=== PATIENT | female | born 1960 | race Caucasian/White ===

== ENCOUNTER → 2017-12-21 | Outpatient (CLI) | payer BC | LOC: GMAJ 12:19 | PROVIDERS: ATTEND Family Medicine | DX: Z00.01 Encounter for general adult medical examination with abnormal findings (principal) ==

== ENCOUNTER → 2018-07-06 | Outpatient (CLI) | payer BC | LOC: GMAJ 11:36 | PROVIDERS: ATTEND Family Medicine | DX: D75.89 Other specified diseases of blood and blood-forming organs (principal); E03.9 Hypothyroidism, unspecified; I10 Essential (primary) hypertension; Z83.3 Family history of diabetes mellitus ==

== ENCOUNTER → 2019-03-22 | Outpatient (CLI) | payer BC | LOC: GMAJ 11:01 | PROVIDERS: ATTEND Family Medicine | DX: E03.9 Hypothyroidism, unspecified (principal) ==

== ENCOUNTER 2019-05-10 05:29 | Day surgery (SDC) | payer BC ==
[2019-05-10] MEDS ORDERED: LACTATED RINGERS 1,000 ML ONE (06:54)
[2019-05-10] MEDS ORDERED: PROPOFOL 200 MG/20 ML VIAL IV ONE (07:00)
[2019-05-10] MEDS ORDERED: LIDOCAINE 1% 10 ML VIAL INJ ONE (07:00)
[2019-05-10] MEDS ORDERED: MIDAZOLAM INJ 2 MG/2 ML VIAL ONE (07:54)
--- NOTE | 2019-05-10 09:24 | OP ---
DATE OF PROCEDURE: 05/10/19 INDICATION: 1. History of benign polyps. POSTOPERATIVE DIAGNOSIS: 1. Normal colon, followup in 10 years. PROCEDURE: 1. Colonoscopy. SURGEON: Art Delatorre MD ANESTHESIA: General. PROCEDURE: This is a 58-year-old woman with a history of colonoscopy over 10 years ago. She was told she had a small polyp, likely benign and just recommended a 10 year followup. She has no specific complaints at this time. General anesthesia was induced in lateral position. Digital rectal exam was normal. The colonoscope was carefully entered. We were able to successfully get to the cecum as evidenced by the ileocecal valve. She had a sharp right turn at the distal cecum, I believe we saw the orifice. She has had an appendectomy. Upon careful withdrawal, she had a good examination with an adequate prep and no polyps were seen. She tolerated the procedure and was then taken to Recovery to be discharged for followup scope in 10 years. #[id number] MTDD
[2019-05-10 10:07] VITALS: BP 132/69; TEMP 96.8; O2SAT 96
== END 2019-05-10 09:50 | disposition home or self-care (01) ==
LOC: AMB 05:29
PROVIDERS: ATTEND Surgery
DX: Z12.11 Encounter for screening for malignant neoplasm of colon (principal); I10 Essential (primary) hypertension; E03.9 Hypothyroidism, unspecified; Z88.5 Allergy status to narcotic agent; Z90.710 Acquired absence of both cervix and uterus; Z96.653 Presence of artificial knee joint, bilateral; Z79.899 Other long term (current) drug therapy
CPT/HCPCS: 00812; 45378; J2250; J3490; J7120

== ENCOUNTER → 2019-12-10 | Outpatient (CLI) | payer BC | LOC: GMAJ 16:10 | PROVIDERS: ATTEND Family Medicine | DX: E03.8 Other specified hypothyroidism (principal); D51.9 Vitamin B12 deficiency anemia, unspecified; I10 Essential (primary) hypertension ==

== ENCOUNTER → 2020-01-10 | Outpatient (CLI) | payer BC ==
--- NOTE | 2020-01-10 22:40 | US ---
EXAM DESCRIPTION: Extremity,Lower [place] Arteries: Ultrasound. CLINICAL HISTORY: DISORDERS OF ARTERIES AND ARTERIOLES COMPARISON: None. TECHNIQUE: Doppler evaluation of the bilateral lower extremity arterial flow waveforms and velocities. FINDINGS: Arterial waveforms in the right lower extremity are all multiphasic.. Arterial waveforms in the left lower extremity are all multiphasic. Comments: Bilateral arterial velocities are unremarkable proximal to distal. IMPRESSION: Doppler evaluation of the bilateral lower extremity arterial systems indicating no evidence of significant atherosclerotic occlusive disease. Electronically signed by: Kris Funez MD 01/10/2020 10:38 PM CDT
== END ==
LOC: ECHO 13:59
PROVIDERS: ATTEND Family Medicine
DX: I50.33 Acute on chronic diastolic (congestive) heart failure (principal); I51.7 Cardiomegaly; I77.89 Other specified disorders of arteries and arterioles

== ENCOUNTER → 2020-06-04 | Outpatient (CLI) | payer OTHER | LOC: GMAJ 16:50 | PROVIDERS: ATTEND Family Medicine | DX: E03.8 Other specified hypothyroidism (principal); I10 Essential (primary) hypertension ==